=== PATIENT | male | born 1990 | race Caucasian/White ===

== ENCOUNTER 2018-11-20 07:54 | Outpatient (REF) | payer OTHER, SELFPAY ==
[2018-11-20 16:27] LABS: ALT 74 U/L (12-78); AST 33 U/L (15-37); Albumin 3.9 g/dL (3.4-5.0); Alkaline Phosphatase 110 U/L (46-116); Anion Gap 9.5 mmol/L (3-11); BUN 18 mg/dL (7-18); Bilirubin, Total 0.2 mg/dL (0.2-1.0); CO2 27.5 mmol/L (21.0-32.0); CREATININE 1.02 mg/dL (0.70-1.30); Calcium 8.5 mg/dL (8.5-10.1); Calculated LDL 84 mg/dL; Chloride 103 mmol/L (98-107); Cholesterol 174 mg/dL (50-200); Glucose 97 mg/dL (70-100); HDL Cholesterol 33 mg/dL (40-60); Potassium 4.6 mmol/L (3.5-5.1); Sodium 140 mmol/L (136-145); Total Protein 6.9 g/dL (6.4-8.2); Triglyceride 287 mg/dL (30-150)
== END 2018-11-20 08:14 ==
LOC: NCHCN 07:54
PROVIDERS: PCP Family Medicine; Visit Provider Family Medicine
DX: Z00.00 Encounter for general adult medical examination without abnormal findings (principal); F41.1 Generalized anxiety disorder; G43.909 Migraine, unspecified, not intractable, without status migrainosus; Z13.220 Encounter for screening for lipoid disorders
CPT/HCPCS: 80053; 80061; 83721

== ENCOUNTER 2019-06-09 10:41 | Outpatient (CLI) | payer OTHER, SELFPAY ==
--- NOTE | 2019-06-10 14:31 | NS.NUTBLAN_ITS ---
Cb came to me for nutritional counseling to lose weight. He reports that he weighs 287 lbs, 73 inches and has BMI of 38. Her has gained about 20 lbs in last year with job becoming more sedentary. Diet recall indicates that he skips breakfast and relys on convenience foods. Diet is rich in simple carbohydrates that most likely has contributed to adult weight gain. He reports taking vitamins/minerals. He has a gym membership. Labs per chart review: low HDL, high trig Estimated needs for weight loss: [id number] kcal, 110-130 g protein Educated Cb on how to follow a Mediterranean Diet rich in fruits, vegetables, beans, lean protein and whole grains. Cb also will start eating breakfast and exercise regularly. Goal weight is 220-230 lbs. Provided educational material. Also encouraged him to track his nutrient intake on demian on phone ([employer]). Cb was very receptive to counseling and expect some positive changes. With diet changes, high HDL should increase and Triglycerides should normalize. Follow up visit scheduled for next month.
== END 2019-06-09 11:01 ==
PROVIDERS: PCP Family Medicine; Visit Provider Family Medicine
DX: E66.3 Overweight (principal); Z71.3 Dietary counseling and surveillance
CPT/HCPCS: 97802

== ENCOUNTER 2019-11-25 15:18 | Outpatient (REF) | payer OTHER, SELFPAY ==
[2019-12-01 01:33] LABS: SARS-CoV-2 RNA Undetected (Undetected); SARS-CoV-2 Specimen Source Nasopharynx
== END 2019-11-25 15:38 ==
LOC: NCHCN 15:18
PROVIDERS: PCP Family Medicine; Visit Provider Nurse Practitioner Family
DX: J02.9 Acute pharyngitis, unspecified (principal); Z11.59 Encounter for screening for other viral diseases
CPT/HCPCS: U0003

== ENCOUNTER 2020-04-12 13:08 | Outpatient (REF) | payer BC, SELFPAY ==
[2020-04-16 17:32] LABS: Patient Race White; SARS-CoV-2 RNA Undetected (Undetected); SARS-CoV-2 Specimen Source Nasal
== END 2020-04-12 13:28 ==
LOC: NCHCN 13:08
PROVIDERS: PCP Family Medicine; Visit Provider Physician Assistant
DX: R05 Cough (principal)
CPT/HCPCS: U0003

== ENCOUNTER 2023-04-02 12:05 | Outpatient (REF) | payer BC, SELFPAY ==
[2023-04-02 15:05] LABS: Anion Gap 9.5 mmol/L (3-11); BUN 27 mg/dL (7-18); CO2 25.5 mmol/L (21.0-32.0); CREATININE 1.1 mg/dL (0.70-1.30); Calculated LDL 145 mg/dL (<100); Chloride 107 mmol/L (98-107); Cholesterol 209 mg/dL (<200); Estimated GFR 92.61 (mL/min/1.73m2); Glucose 102 mg/dL (74-106); HDL Cholesterol 54 mg/dL (40-60); Potassium 4.5 mmol/L (3.5-5.1); Sodium 142 mmol/L (136-145); TSH 1.06 uIU/mL (0.36-3.74); Triglyceride 53 mg/dL (<150)
== END 2023-04-02 12:06 | disposition home or self-care (01) ==
LOC: NCHCN 12:05
PROVIDERS: PCP Family Medicine; Visit Provider Nurse Practitioner Family
DX: F41.1 Generalized anxiety disorder (principal); R79.89 Other specified abnormal findings of blood chemistry
CPT/HCPCS: 80048; 80061; 84443